=== PATIENT | male | born 1955 | race Caucasian/White ===

== ENCOUNTER 2020-09-28 19:19 | Inpatient (IN) ==
[2020-09-28] MEDS ORDERED: Etomidate 20 mg/10 ml 2 MG/ML 10 ml VIAL IV ONE (19:29)
[2020-09-28] MEDS ORDERED: Succinylcholine 200 mg VIAL 20 mg/ml 10 ml VIAL (200 mg) IV ONE (19:30)
[2020-09-28] MEDS ORDERED: Piperacillin/Tazobac PREMIX(*) 3.375 GM in Premix IV 50 ML IVPB ONE (19:32)
[2020-09-28] MEDS ORDERED: NS 0.9% 1000 ml BAG 1,000 ML IV ONE (19:32)
[2020-09-28] MEDS ORDERED: Propofol 10 mg/ml 100 ML BTL 100 ML IV ONE (20:04)
[2020-09-28] MEDS ORDERED: Premix IV 0 ML ONE (20:04)
[2020-09-28] MEDS ORDERED: ZOSYN 3.375 GM x ONE DOSE over 30 miuntes IV (20:06)
[2020-09-28 20:07] LABS: ALT 11 U/L (7-52); Albumin 1.9 g/dL (3.2-5.2); Alkaline Phosphatase 79 U/L (34-104); BUN/Creatinine Ratio 57.8 (8-20); Blood Urea Nitrogen 52 mg/dL (6-24); CO2 Carbon Dioxide 18 mmol/L (22-32); Creatine Kinase 54 U/L (10-223); EGFR African American 101.8 (>60); EGFR Non-African American 84.2 (>60); Globulin 1.9 g/dL (2-4); Glucose 138 mg/dL (70-100); Magnesium 1.4 mg/dL (1.9-2.7); Total Protein 3.8 g/dL (6.4-8.9)
[2020-09-28 20:08] LABS: Troponin I 0.01 ng/mL (<0.03)
[2020-09-28 20:13] LABS: ABS Lymphocytes 1.1 10^3/ul (1.0-4.8); ABS Monocytes 0.7 10^3/ul (0-0.8); ABS Neutrophils 4.5 10^3/ul (1.5-7.7); Eosinophil % 0.7 %; Hematocrit 41 % (42-52); Hemoglobin 13.4 g/dL (14.0-18.0); Mean Corpuscular HGB Conc 33 g/dL (31-36); Mean Corpuscular Hemoglobin 32 pg (27-31); Mean Corpuscular Volume 97 fL (80-94); Mean Platelet Volume 6.8 fL (7.4-10.4); Nucleated Red Blood Cells % 0.2; Platelet Count 232 10^3/uL (150-450); Red Blood Count 4.18 10^6 /uL (4.18-5.48); Red Cell Distribution Width 13 % (10-15); White Blood Count 6.3 10^3/uL (3.5-10.8)
[2020-09-28 20:16] LABS: Acetaminophen < 15 mcg/mL; Alcohol, S < 10 mg/dL (<10); Salicylate < 2.50 mg/dL (<30)
[2020-09-28 20:20] LABS: INR 1.37 (0.82-1.09)
[2020-09-28 20:30] LABS: TSH Ultra Thyroid Stim Horm 0.62 mcIU/mL (0.34-5.60)
[2020-09-28] MEDS ORDERED: fentaNYL 100 mcg/2 ml 50 MCG/ML VIAL ONE (20:31)
[2020-09-28] MEDS ORDERED: fentaNYL 100 mcg/2 ml 50 MCG/ML VIAL IV SLOW PU ONE ×2 (20:33→22:17)
[2020-09-28 20:44] LABS: Anion Gap 7 mmol/L (2-11); Chloride 125 mmol/L (101-111); Sodium 150 mmol/L (135-145)
[2020-09-28 20:46] LABS: Calcium 5.6 mg/dL (8.6-10.3)
[2020-09-28] MEDS ORDERED: Magnesium Sulfate 2 gm BAG 2 GM/50 ML BAG IVPB ONE (20:47)
[2020-09-28 21:16] LABS: Urine Appearance Cloudy; Urine Bilirubin 1+ (Negative); Urine Blood Negative (Negative); Urine Color Amber; Urine Glucose 1+(50 mg/dL) (Negative); Urine Ketones Trace (Negative); Urine Nitrite Negative (Negative); Urine Protein 2+(100 mg/dL) (Negative); Urine Specific Gravity 1.024 (1.002-1.030); Urine Urobilinogen Positive (Negative)
[2020-09-28 21:21] LABS: Urine Bacteria 1+ (Absent); Urine Red Blood Cell 3+(>10/hpf) (Absent); Urine Squamous Epithelial Cell Present (Absent); Urine White Blood Cell 1+(6-10/hpf) (Absent)
[2020-09-28 21:31] LABS: Urine Benzodiazepine Screen None Detected (None Detect); Urine Cannabinoids Screen None Detected (None Detect); Urine Opiates Screen None Detected (None Detect)
[2020-09-28] MEDS ORDERED: Dextrose 50% Syringe 50 ml 25 GM/50 ML SYRINGE IV PUSH PRN (21:37)
[2020-09-28] MEDS ORDERED: NORMOSOL-R pH 7.4 1000 mL BAG 1,000 ML IV SCH (22:00)
[2020-09-28] MEDS ORDERED: Vancomycin 1,000 MG in NS 0.9% 250 ml 250 ML IVPB ONE (22:00)
[2020-09-28] MEDS ORDERED: Propofol 10 mg/ml 100 ML BTL 100 ML ONE (22:26)
[2020-09-28] MEDS: Propofol 10 mg/ml 100 ML BTL 100 ML IV SCH ×2 (22:50→23:48)
[2020-09-28] MEDS ORDERED: Cefepime 1 GM in Dextrose 1 GM/50 ML BAG IV ONE (23:00)
[2020-09-28] MEDS: NS 0.9% 1000 ml BAG 1,000 ML IV SCH (23:42)
[2020-09-28] MEDS ORDERED: fentaNYL 100 mcg/2 ml 50 MCG/ML VIAL IV SLOW PU PRN (23:43)
[2020-09-29] MEDS: Norepinephrine 16MCG/ML IVPRE 4,000 MCG/250 ML BAG IV SCH ×4 (00:51→14:40)
[2020-09-29] MEDS ORDERED: NS 0.9% 1000 ml BAG 1,000 ML IV SCH (01:00)
[2020-09-29 01:14] LABS: Urine Appearance Cloudy; Urine Bilirubin Negative (Negative); Urine Blood 1+ (Negative); Urine Color Yellow; Urine Glucose Negative (Negative); Urine Ketones Negative (Negative); Urine Nitrite Negative (Negative); Urine Protein 1+(30 mg/dL) (Negative); Urine Specific Gravity 1.017 (1.002-1.030); Urine Urobilinogen Negative (Negative)
[2020-09-29] MEDS ORDERED: Midazolam 2 mg/2 ml VIAL 1 mg/ml 2 ml VIAL (2 mg) ONE ×2 (01:16→10:40)
[2020-09-29] MEDS ORDERED: Midazolam 2 mg/2 ml VIAL 1 mg/ml 2 ml VIAL (2 mg) IV SLOW PU PRN (01:16)
[2020-09-29 01:22] LABS: Urine Bacteria Absent (Absent); Urine Red Blood Cell 3+(>10/hpf) (Absent); Urine Squamous Epithelial Cell Present (Absent); Urine White Blood Cell Trace(0-5/hpf) (Absent); Urine White Blood Cell Casts Present (Absent)
[2020-09-29] MEDS: Midazolam 50 MG VIAL IV DRIP 50 ML IV SCH ×2 (02:09→10:33)
[2020-09-29] MEDS: Pantoprazole VIAL 40 MG VIAL IV SCH (02:17)
[2020-09-29 04:07] LABS: ABS Eosinophils 0.1 10^3/ul (0-0.6); ABS Lymphocytes 1.6 10^3/ul (1.0-4.8); ABS Monocytes 0.9 10^3/ul (0-0.8); ABS Neutrophils 5.2 10^3/ul (1.5-7.7); Eosinophil % 1.1 %; Hematocrit 47 % (42-52); Hemoglobin 14.7 g/dL (14.0-18.0); Lymphocyte % 20.3 %; Mean Corpuscular HGB Conc 32 g/dL (31-36); Mean Corpuscular Hemoglobin 31 pg (27-31); Mean Corpuscular Volume 100 fL (80-94); Nucleated Red Blood Cells % 0.1; Platelet Count 276 10^3/uL (150-450); Red Cell Distribution Width 14 % (10-15); White Blood Count 7.9 10^3/uL (3.5-10.8)
[2020-09-29] MEDS ORDERED: Vancomycin per Pharmacy 1 EA NOTE FOLLOW UP PRN (04:20)
[2020-09-29 04:47] LABS: BUN/Creatinine Ratio 57.8 (8-20); EGFR African American 88.1 (>60); EGFR Non-African American 72.8 (>60); Potassium 4.2 mmol/L (3.5-5.0)
[2020-09-29] MEDS ORDERED: Chlorhexidine MOUTHWASH 0.12% 15 ML UDC ONE (07:44)
[2020-09-29] MEDS ORDERED: TRANEXAMIC ACID 650 MG PO SCH (09:00)
[2020-09-29] MEDS ORDERED: NS 0.45% 1000 ml BAG 1,000 ML IV SCH (09:00)
[2020-09-29] MEDS: Chlorhexidine MOUTHWASH 0.12% 15 ML UDC SWISH SPIT SCH ×4 (10:50→22:12)
[2020-09-29] MEDS: fentaNYL 100 mcg/2 ml 50 MCG/ML VIAL IV SLOW PU PRN (11:10)
[2020-09-29] MEDS ORDERED: fentaNYL 100 mcg/2 ml 50 MCG/ML VIAL ONE (12:13)
[2020-09-29] MEDS ORDERED: Cefepime ADVAN 1 GM in NS 0.9% 50 ML 50 ML IVPB SCH (13:00)
[2020-09-29] MEDS: Cefepime 1 GM in Dextrose 1 GM/50 ML BAG IV SCH (13:11)
[2020-09-29] MEDS ORDERED: Hydrocortisone INJ 250 MG VIAL IV ONE (13:33)
[2020-09-29] MEDS: Vancomycin 1000 MG in NS 0.9% 250 ML IVPB SCH (13:52)
[2020-09-29] MEDS ORDERED: Hydrocortisone INJ 100 MG/2ML 2 ML VIAL IV ONE (14:00)
[2020-09-29 15:19] LABS: BUN/Creatinine Ratio 57.7 (8-20); Calcium 7.8 mg/dL (8.6-10.3); EGFR African American 133.9 (>60); EGFR Non-African American 110.7 (>60); Potassium 3.8 mmol/L (3.5-5.0)
[2020-09-29] MEDS ORDERED: Norepinephrine 16MCG/ML IVPRE 4,000 MCG/250 ML BAG IV SCH (17:38)
[2020-09-29] MEDS: KCL 20 MEQ/100 ML IVPREMIX 20 MEQ/100 ML BAG IV SCH ×2 (18:29→19:43)
[2020-09-29] MEDS: Hydrocortisone INJ 100 MG/2ML 2 ML VIAL IV SCH (21:31)
[2020-09-29] MEDS: Insulin GLARGINE 100 un/ml 10 ml VIAL SUBCUT SCH (21:32)
[2020-09-29 21:53] LABS: BUN/Creatinine Ratio 56.5 (8-20); EGFR African American 156.6 (>60); EGFR Non-African American 129.4 (>60)
[2020-09-29 22:03] LABS: Potassium 5.2 mmol/L (3.5-5.0)
[2020-09-30] MEDS: fentaNYL 100 mcg/2 ml 50 MCG/ML VIAL IV SLOW PU PRN (00:07)
[2020-09-30] MEDS: Cefepime 1 GM in Dextrose 1 GM/50 ML BAG IV SCH ×2 (01:03→12:06)
[2020-09-30] MEDS: Vancomycin 1000 MG in NS 0.9% 250 ML IVPB SCH ×2 (02:20→14:20)
[2020-09-30] MEDS: Pantoprazole VIAL 40 MG VIAL IV SCH (02:27)
[2020-09-30] MEDS: Chlorhexidine MOUTHWASH 0.12% 15 ML UDC SWISH SPIT SCH ×6 (02:27→20:22)
[2020-09-30] MEDS: Hydrocortisone INJ 100 MG/2ML 2 ML VIAL IV SCH ×3 (05:25→20:22)
[2020-09-30 05:33] LABS: ABS Lymphocytes 0.6 10^3/ul (1.0-4.8); ABS Monocytes 0.4 10^3/ul (0-0.8); ABS Neutrophils 4.3 10^3/ul (1.5-7.7); Hematocrit 37 % (42-52); Hemoglobin 12.3 g/dL (14.0-18.0); Lymphocyte % 11.1 %; Mean Corpuscular HGB Conc 34 g/dL (31-36); Mean Corpuscular Hemoglobin 32 pg (27-31); Mean Corpuscular Volume 95 fL (80-94); Mean Platelet Volume 6.7 fL (7.4-10.4); Platelet Count 202 10^3/uL (150-450); Red Blood Count 3.83 10^6 /uL (4.18-5.48); Red Cell Distribution Width 14 % (10-15); White Blood Count 5.3 10^3/uL (3.5-10.8)
[2020-09-30 05:50] LABS: BUN/Creatinine Ratio 61.8 (8-20); Calcium 7.8 mg/dL (8.6-10.3); EGFR African American 179.8 (>60); EGFR Non-African American 148.6 (>60); Potassium 4.5 mmol/L (3.5-5.0)
[2020-09-30] MEDS ORDERED: Dexmedetomidine 1,000 MCG in NS 0.9% 250 ml 240 ML IV SCH (08:00)
[2020-09-30] MEDS: Midazolam 50 MG VIAL IV DRIP 50 ML IV SCH (08:48)
[2020-09-30] MEDS ORDERED: D5W 1000 ml BAG 1,000 ML IV SCH (10:00)
[2020-09-30] MEDS ORDERED: D5NS 0.9% 1000 ml BAG 1,000 ML IV SCH (10:00)
[2020-09-30] MEDS ORDERED: Propofol 10 mg/ml 100 ML BTL 100 ML ONE (11:13)
[2020-09-30] MEDS ORDERED: Propofol 10 mg/ml 100 ML BTL 100 ML IV SCH (12:00)
[2020-09-30] MEDS: Propofol* 20 ML VIAL - FOR IV LINE PRIMING ONLY SCH ×2 (12:05→22:29)
[2020-09-30] MEDS ORDERED: Vancomycin Trough Check NOTE FOLLOW UP ONE (13:30)
[2020-09-30] MEDS: Insulin GLARGINE 100 un/ml 10 ml VIAL SUBCUT SCH (20:22)
[2020-09-30 20:56] LABS: Albumin 2.3 g/dL (3.2-5.2); Calcium 7.6 mg/dL (8.6-10.3); EGFR African American 200.7 (>60); EGFR Non-African American 165.9 (>60); Globulin 2.3 g/dL (2-4); Potassium 4.3 mmol/L (3.5-5.0); Total Bilirubin 0.3 mg/dL (0.2-1.0); Total Protein 4.6 g/dL (6.4-8.9)
[2020-09-30] MEDS ORDERED: NS 0.9% 250 ml 250 ML ONE (21:33)
[2020-09-30] MEDS ORDERED: Potassium Phosphate IV 15 MMOLE in NS 0.9% 250 ml 250 ML IVPB ONE (22:00)
[2020-10-01] MEDS: Chlorhexidine MOUTHWASH 0.12% 15 ML UDC SWISH SPIT SCH ×6 (00:50→20:00)
[2020-10-01] MEDS: Cefepime 1 GM in Dextrose 1 GM/50 ML BAG IV SCH ×2 (01:50→14:15)
[2020-10-01] MEDS: Pantoprazole VIAL 40 MG VIAL IV SCH (01:51)
[2020-10-01] MEDS: Vancomycin 1000 MG in NS 0.9% 250 ML IVPB SCH ×2 (03:17→14:16)
[2020-10-01] MEDS: fentaNYL 100 mcg/2 ml 50 MCG/ML VIAL IV SLOW PU PRN (03:27)
[2020-10-01 04:19] LABS: ABS Lymphocytes 0.4 10^3/ul (1.0-4.8); ABS Monocytes 0.3 10^3/ul (0-0.8); ABS Neutrophils 2.4 10^3/ul (1.5-7.7); Eosinophil % 0.1 %; Hematocrit 35 % (42-52); Hemoglobin 11.7 g/dL (14.0-18.0); Lymphocyte % 13.7 %; Mean Corpuscular HGB Conc 34 g/dL (31-36); Mean Corpuscular Hemoglobin 32 pg (27-31); Mean Corpuscular Volume 96 fL (80-94); Mean Platelet Volume 7.2 fL (7.4-10.4); Nucleated Red Blood Cells % 0.1; Platelet Count 180 10^3/uL (150-450); Red Blood Count 3.66 10^6 /uL (4.18-5.48); Red Cell Distribution Width 13 % (10-15); White Blood Count 3.1 10^3/uL (3.5-10.8)
[2020-10-01 04:36] LABS: Albumin 2.3 g/dL (3.2-5.2); BUN/Creatinine Ratio 68.1 (8-20); Calcium 7.6 mg/dL (8.6-10.3); EGFR African American 215.5 (>60); EGFR Non-African American 178.1 (>60); Magnesium 1.9 mg/dL (1.9-2.7); Phosphorus 2.9 mg/dL (2.5-5.0); Potassium 4.5 mmol/L (3.5-5.0); Total Protein 4.6 g/dL (6.4-8.9)
[2020-10-01 04:37] LABS: Globulin 2.3 g/dL (2-4); Total Bilirubin 0.3 mg/dL (0.2-1.0)
[2020-10-01] MEDS ORDERED: Magnesium Sulfate IV 1GM/100ML 1 GM/100 ML BAG IV ONE (05:03)
[2020-10-01] MEDS: Hydrocortisone INJ 100 MG/2ML 2 ML VIAL IV SCH ×2 (05:21→14:46)
[2020-10-01] MEDS ORDERED: Heparin 5000 UNITS/ML 1 mL VIAL SUBCUT SCH (11:00)
[2020-10-01] MEDS: Propofol* 20 ML VIAL - FOR IV LINE PRIMING ONLY SCH ×2 (12:34→22:28)
[2020-10-01] MEDS ORDERED: LORazepam 2 mg VIAL 1 ml IV PUSH ONE (13:17)
[2020-10-01] MEDS ORDERED: Lorazepam PYXIS KEY PRN (13:17)
[2020-10-01] MEDS ORDERED: Lorazepam PYXIS KEY ONE (13:19)
[2020-10-01] MEDS ORDERED: LORazepam 2 mg VIAL 1 ml ONE (13:20)
[2020-10-01] MEDS ORDERED: Haloperidol 5 mg/ml SDV IV/IM 5 MG/ML AMP ONE (13:20)
[2020-10-01] MEDS: Haloperidol 5 mg/ml SDV IV/IM 5 MG/ML AMP IV SLOW PU PRN ×2 (13:31→22:15)
[2020-10-01] MEDS: Insulin GLARGINE 100 un/ml 10 ml VIAL SUBCUT SCH (20:27)
[2020-10-01] MEDS: Heparin 5000 UNITS/ML 1 mL VIAL SUBCUT SCH (21:10)
[2020-10-02] MEDS: Cefepime 1 GM in Dextrose 1 GM/50 ML BAG IV SCH (00:17)
[2020-10-02] MEDS: fentaNYL 100 mcg/2 ml 50 MCG/ML VIAL IV SLOW PU PRN (00:24)
[2020-10-02] MEDS: Chlorhexidine MOUTHWASH 0.12% 15 ML UDC SWISH SPIT SCH ×3 (01:04→08:06)
[2020-10-02] MEDS ORDERED: Lorazepam PYXIS KEY PRN (01:25)
[2020-10-02] MEDS ORDERED: LORazepam 2 mg VIAL 1 ml IV PUSH ONE (01:25)
[2020-10-02] MEDS: Pantoprazole VIAL 40 MG VIAL IV SCH (01:32)
[2020-10-02 03:36] LABS: ABS Lymphocytes 0.8 10^3/ul (1.0-4.8); ABS Monocytes 0.6 10^3/ul (0-0.8); Eosinophil % 0.1 %; Hematocrit 46 % (42-52); Hemoglobin 15.5 g/dL (14.0-18.0); Lymphocyte % 17.8 %; Mean Corpuscular HGB Conc 34 g/dL (31-36); Mean Corpuscular Hemoglobin 32 pg (27-31); Mean Corpuscular Volume 96 fL (80-94); Mean Platelet Volume 6.8 fL (7.4-10.4); Nucleated Red Blood Cells % 0.1; Platelet Count 201 10^3/uL (150-450); Red Blood Count 4.83 10^6 /uL (4.18-5.48); Red Cell Distribution Width 13 % (10-15); White Blood Count 4.4 10^3/uL (3.5-10.8)
[2020-10-02] MEDS: Vancomycin 1000 MG in NS 0.9% 250 ML IVPB SCH (03:45)
[2020-10-02 03:58] LABS: BUN/Creatinine Ratio 46.2 (8-20); Calcium 8.1 mg/dL (8.6-10.3); EGFR African American 191.8 (>60); EGFR Non-African American 158.5 (>60); Potassium 3.5 mmol/L (3.5-5.0)
[2020-10-02] MEDS: Heparin 5000 UNITS/ML 1 mL VIAL SUBCUT SCH ×2 (08:07→20:48)
[2020-10-02 08:10] LABS: Magnesium 1.9 mg/dL (1.9-2.7)
[2020-10-02] MEDS ORDERED: TRANEXAMIC ACID 650 MG PO SCH (09:00)
[2020-10-02] MEDS: D5LR 1000 ml BAG 1,000 ML IV SCH (10:30)
[2020-10-02] MEDS: Thiamine 100 MG/ML 2 ml VIAL 500 MG in NS 0.9% 250 ml 250 ML IV SCH ×2 (10:46→18:25)
[2020-10-02 14:00] LABS: Glucose Confirmatory 187 mg/dL (70-100)
[2020-10-02 15:03] LABS: Sodium 155 mmol/L (135-145)
[2020-10-02 15:07] LABS: Urine Appearance Cloudy; Urine Bacteria Absent (Absent); Urine Bilirubin Negative (Negative); Urine Blood 3+ (Negative); Urine Color Straw; Urine Glucose 1+(50 mg/dL) (Negative); Urine Ketones Negative (Negative); Urine Nitrite Negative (Negative); Urine Protein 1+(30 mg/dL) (Negative); Urine Red Blood Cell 3+(>10/hpf) (Absent); Urine Specific Gravity 1.005 (1.002-1.030); Urine Urobilinogen Negative (Negative); Urine White Blood Cell 1+(6-10/hpf) (Absent)
[2020-10-02] MEDS ORDERED: Desmopressin Acetate 4 MCG/ML 1 ML SDV IV ONE ×2 (15:30→21:00)
[2020-10-02] MEDS ORDERED: Potassium Phosphate IV 15 MMOLE in NS 0.9% 250 ml 250 ML IVPB ONE (15:30)
[2020-10-02 18:15] LABS: Glucose 249 mg/dL (70-100)
[2020-10-02 18:20] LABS: Sodium 153 mmol/L (135-145)
[2020-10-02 20:29] LABS: Urine Appearance Clear; Urine Bilirubin Negative (Negative); Urine Blood 3+ (Negative); Urine Color Straw; Urine Glucose 2+(150 mg/dL) (Negative); Urine Ketones Negative (Negative); Urine Nitrite Negative (Negative); Urine Protein 1+(30 mg/dL) (Negative); Urine Specific Gravity 1.008 (1.002-1.030); Urine Urobilinogen Negative (Negative)
[2020-10-02] MEDS: Insulin GLARGINE 100 un/ml 10 ml VIAL SUBCUT SCH (20:48)
[2020-10-02 20:51] LABS: Urine Bacteria Absent (Absent); Urine Red Blood Cell 3+(>10/hpf) (Absent); Urine White Blood Cell Absent (Absent)
[2020-10-03] MEDS: D5LR 1000 ml BAG 1,000 ML IV SCH ×3 (01:58→16:37)
[2020-10-03] MEDS: Pantoprazole VIAL 40 MG VIAL IV SCH (02:30)
[2020-10-03] MEDS: Thiamine 100 MG/ML 2 ml VIAL 500 MG in NS 0.9% 250 ml 250 ML IV SCH ×3 (02:30→18:13)
[2020-10-03 05:21] LABS: Calcium 8.1 mg/dL (8.6-10.3); EGFR Non-African American 182.6 (>60); Magnesium 1.5 mg/dL (1.9-2.7); Phosphorus 2.7 mg/dL (2.5-5.0); Potassium 3.2 mmol/L (3.5-5.0)
[2020-10-03] MEDS: Heparin 5000 UNITS/ML 1 mL VIAL SUBCUT SCH ×2 (08:33→21:34)
[2020-10-03] MEDS: KCL 20 MEQ/100 ML IVPREMIX 20 MEQ/100 ML BAG IV SCH ×3 (10:42→15:27)
[2020-10-03] MEDS ORDERED: DESMOPRESSIN ACETATE IVPB SCH (11:00)
[2020-10-03] MEDS ORDERED: NS 0.9% IVPB SCH (11:00)
[2020-10-03] MEDS ORDERED: Magnesium Sulf 4 GM/100 ML IV 4,000 MG/100 ML BAG IVPB ONE (11:00)
[2020-10-03] MEDS: NS 0.9% IV SCH ×3 (11:09→21:34)
[2020-10-03] MEDS: DESMOPRESSIN ACETATE IV SCH ×3 (11:09→21:34)
[2020-10-03] MEDS ORDERED: Lactated Ringers 1000 ml BAG 1,000 ML IV ONE (12:12)
[2020-10-03] MEDS ORDERED: Vancomycin Trough Check NOTE FOLLOW UP ONE (13:30)
[2020-10-03] MEDS ORDERED: Perflutren Lipid Microsphere 3 ML VIAL ONE (14:31)
[2020-10-03] MEDS: Insulin GLARGINE 100 un/ml 10 ml VIAL SUBCUT SCH (21:33)
[2020-10-04] MEDS: Pantoprazole VIAL 40 MG VIAL IV SCH (02:06)
[2020-10-04] MEDS: Thiamine 100 MG/ML 2 ml VIAL 500 MG in NS 0.9% 250 ml 250 ML IV SCH (02:14)
[2020-10-04 03:19] LABS: Calcium 7.6 mg/dL (8.6-10.3); EGFR African American 245.4 (>60); EGFR Non-African American 202.8 (>60); Magnesium 1.8 mg/dL (1.9-2.7); Phosphorus 1.8 mg/dL (2.5-5.0); Potassium 3.3 mmol/L (3.5-5.0)
[2020-10-04] MEDS ORDERED: Magnesium Sulfate 2 gm BAG 2 GM/50 ML BAG IVPB ONE (03:29)
[2020-10-04] MEDS ORDERED: SODIUM PHOSPHATE IVPB ONE (03:30)
[2020-10-04] MEDS ORDERED: NS IVPB ONE (03:30)
[2020-10-04] MEDS ORDERED: Potassium Phosphate IV 15 MMOLE in NS 0.9% 250 ml 250 ML IVPB ONE (03:31)
[2020-10-04] MEDS ORDERED: Magnesium Sulfate 2 gm BAG 2 GM/50 ML BAG ONE (03:35)
[2020-10-04] MEDS ORDERED: KCL 20 MEQ/100 ML IVPREMIX 20 MEQ/100 ML BAG ONE (03:36)
[2020-10-04] MEDS: KCL 20 MEQ/100 ML IVPREMIX 20 MEQ/100 ML BAG IV SCH ×2 (03:38→09:07)
[2020-10-04] MEDS: D5LR 1000 ml BAG 1,000 ML IV SCH ×2 (03:38→10:20)
[2020-10-04] MEDS: Heparin 5000 UNITS/ML 1 mL VIAL SUBCUT SCH ×2 (09:25→20:21)
[2020-10-04] MEDS: DESMOPRESSIN ACETATE IV SCH (11:32)
[2020-10-04] MEDS: NS 0.9% IV SCH (11:32)
[2020-10-04] MEDS: Levothyroxine 100 MCG/5 ML VIAL IV SCH (11:44)
[2020-10-04] MEDS: Thiamine 100 MG/ML 2 ml VIAL 250 MG in NS 0.9% 100 ml BAG 100 ML IV SCH (16:47)
[2020-10-04] MEDS: Insulin GLARGINE 100 un/ml 10 ml VIAL SUBCUT SCH (20:21)
[2020-10-05] MEDS: Pantoprazole VIAL 40 MG VIAL IV SCH (02:13)
[2020-10-05] MEDS: D5LR 1000 ml BAG 1,000 ML IV SCH ×2 (02:13→23:58)
[2020-10-05] MEDS: Levothyroxine 100 MCG/5 ML VIAL IV SCH (05:00)
[2020-10-05 08:32] LABS: Calcium 7.8 mg/dL (8.6-10.3); EGFR African American 293.2 (>60); EGFR Non-African American 242.3 (>60); Magnesium 1.6 mg/dL (1.9-2.7); Phosphorus 2.3 mg/dL (2.5-5.0); Potassium 3.5 mmol/L (3.5-5.0)
[2020-10-05] MEDS: Heparin 5000 UNITS/ML 1 mL VIAL SUBCUT SCH ×2 (09:49→21:45)
[2020-10-05] MEDS: Thiamine 100 MG/ML 2 ml VIAL 250 MG in NS 0.9% 100 ml BAG 100 ML IV SCH (14:49)
[2020-10-05] MEDS: Insulin GLARGINE 100 un/ml 10 ml VIAL SUBCUT SCH (21:45)
[2020-10-06] MEDS: Pantoprazole VIAL 40 MG VIAL IV SCH (04:39)
[2020-10-06 06:17] LABS: Calcium 7.6 mg/dL (8.6-10.3); Potassium 3.7 mmol/L (3.5-5.0)
[2020-10-06 06:22] LABS: EGFR African American 275.5 (>60); EGFR Non-African American 227.7 (>60)
[2020-10-06] MEDS: Levothyroxine 100 MCG/5 ML VIAL IV SCH (06:56)
[2020-10-06] MEDS: Heparin 5000 UNITS/ML 1 mL VIAL SUBCUT SCH ×2 (08:32→23:35)
[2020-10-06] MEDS ORDERED: Magnesium Hydroxide LIQ 30 ML UDC PO ONE (10:23)
[2020-10-06] MEDS ORDERED: Polyethylene Glycol 3350 17 GM PACKET PO ONE (10:25)
[2020-10-06] MEDS: Thiamine 100 MG/ML 2 ml VIAL 250 MG in NS 0.9% 100 ml BAG 100 ML IV SCH (14:38)
[2020-10-06] MEDS: Insulin GLARGINE 100 un/ml 10 ml VIAL SUBCUT SCH (20:22)
[2020-10-06] MEDS: Haloperidol 5 mg/ml SDV IV/IM 5 MG/ML AMP IV SLOW PU PRN (20:23)
[2020-10-06] MEDS: Magnesium Hydroxide LIQ 30 ML UDC PO SCH (21:30)
[2020-10-07] MEDS: Pantoprazole VIAL 40 MG VIAL IV SCH (02:26)
[2020-10-07] MEDS: D5LR 1000 ml BAG 1,000 ML IV SCH (02:26)
[2020-10-07] MEDS: Levothyroxine 100 MCG/5 ML VIAL IV SCH (05:31)
[2020-10-07 05:50] LABS: ABS Eosinophils 0.1 10^3/ul (0-0.6); ABS Lymphocytes 0.6 10^3/ul (1.0-4.8); ABS Monocytes 0.4 10^3/ul (0-0.8); ABS Neutrophils 2.2 10^3/ul (1.5-7.7); Eosinophil % 2.2 %; Hematocrit 34 % (42-52); Hemoglobin 11.7 g/dL (14.0-18.0); Lymphocyte % 17.4 %; Mean Corpuscular HGB Conc 34 g/dL (31-36); Mean Corpuscular Hemoglobin 32 pg (27-31); Mean Corpuscular Volume 92 fL (80-94); Mean Platelet Volume 6.5 fL (7.4-10.4); Platelet Count 128 10^3/uL (150-450); Red Cell Distribution Width 13 % (10-15); White Blood Count 3.3 10^3/uL (3.5-10.8)
[2020-10-07 06:09] LABS: Albumin 2.4 g/dL (3.2-5.2); Albumin/Globulin Ratio 0.9 (1-3); EGFR African American 313.2 (>60); EGFR Non-African American 258.8 (>60); Globulin 2.6 g/dL (2-4); Magnesium 1.6 mg/dL (1.9-2.7); Phosphorus 2.3 mg/dL (2.5-5.0); Potassium 3.4 mmol/L (3.5-5.0); Total Bilirubin 0.6 mg/dL (0.2-1.0)
[2020-10-07] MEDS: Heparin 5000 UNITS/ML 1 mL VIAL SUBCUT SCH ×2 (08:43→20:14)
[2020-10-07] MEDS: Magnesium Hydroxide LIQ 30 ML UDC PO SCH ×2 (08:43→20:13)
[2020-10-07] MEDS: Thiamine 100 MG/ML 2 ml VIAL 250 MG in NS 0.9% 100 ml BAG 100 ML IV SCH (14:34)
[2020-10-07] MEDS ORDERED: Potassium Chlor 20 meq TAB.ER PO ONE (17:06)
[2020-10-07] MEDS ORDERED: Magnesium Sulf 4 GM/100 ML IV 4,000 MG/100 ML BAG IVPB ONE (17:08)
[2020-10-07] MEDS: Potassium Acid Phos 500 mg TAB PO SCH ×2 (17:41→23:05)
[2020-10-07] MEDS: Insulin GLARGINE 100 un/ml 10 ml VIAL SUBCUT SCH (20:13)
[2020-10-07] MEDS: Haloperidol 5 mg/ml SDV IV/IM 5 MG/ML AMP IV SLOW PU PRN (20:14)
[2020-10-08] MEDS: Pantoprazole VIAL 40 MG VIAL IV SCH (03:58)
[2020-10-08] MEDS: D5LR 1000 ml BAG 1,000 ML IV SCH (04:01)
[2020-10-08 05:45] LABS: Calcium 8.3 mg/dL (8.6-10.3); EGFR African American 238.8 (>60); EGFR Non-African American 197.4 (>60); Magnesium 2.2 mg/dL (1.9-2.7); Phosphorus 2.8 mg/dL (2.5-5.0); Potassium 4.2 mmol/L (3.5-5.0)
[2020-10-08] MEDS: Potassium Acid Phos 500 mg TAB PO SCH (05:57)
[2020-10-08] MEDS: Levothyroxine 100 MCG/5 ML VIAL IV SCH (05:57)
[2020-10-08] MEDS: Heparin 5000 UNITS/ML 1 mL VIAL SUBCUT SCH ×2 (09:00→20:50)
[2020-10-08] MEDS: Magnesium Hydroxide LIQ 30 ML UDC PO SCH ×2 (09:00→20:50)
[2020-10-08] MEDS: Thiamine 100 MG/ML 2 ml VIAL 250 MG in NS 0.9% 100 ml BAG 100 ML IV SCH (15:51)
[2020-10-08] MEDS: Insulin GLARGINE 100 un/ml 10 ml VIAL SUBCUT SCH (20:50)
[2020-10-09] MEDS: Pantoprazole VIAL 40 MG VIAL IV SCH (00:58)
[2020-10-09 06:02] LABS: Calcium 8.4 mg/dL (8.6-10.3); EGFR African American 267.3 (>60); EGFR Non-African American 220.9 (>60); Potassium 3.6 mmol/L (3.5-5.0)
[2020-10-09 09:21] LABS: ABS Lymphocytes 0.5 10^3/ul (1.0-4.8); ABS Monocytes 0.4 10^3/ul (0-0.8); ABS Neutrophils 5.8 10^3/ul (1.5-7.7); Eosinophil % 0.3 %; Hematocrit 41 % (42-52); Hemoglobin 13.7 g/dL (14.0-18.0); Lymphocyte % 7.6 %; Mean Corpuscular HGB Conc 34 g/dL (31-36); Mean Corpuscular Hemoglobin 32 pg (27-31); Mean Corpuscular Volume 94 fL (80-94); Mean Platelet Volume 6.3 fL (7.4-10.4); Platelet Count 201 10^3/uL (150-450); Red Blood Count 4.33 10^6 /uL (4.18-5.48); Red Cell Distribution Width 13 % (10-15); White Blood Count 6.8 10^3/uL (3.5-10.8)
[2020-10-09] MEDS: Heparin 5000 UNITS/ML 1 mL VIAL SUBCUT SCH ×2 (09:43→21:34)
[2020-10-09] MEDS: Magnesium Hydroxide LIQ 30 ML UDC PO SCH ×2 (10:12→19:51)
[2020-10-09 10:43] LABS: Urine Appearance Cloudy; Urine Bilirubin Negative (Negative); Urine Blood 2+ (Negative); Urine Color Yellow; Urine Glucose Negative (Negative); Urine Ketones Trace (Negative); Urine Nitrite Negative (Negative); Urine Protein 2+(100 mg/dL) (Negative); Urine Specific Gravity 1.013 (1.002-1.030); Urine Urobilinogen Negative (Negative)
[2020-10-09 10:46] LABS: Urine Bacteria Absent (Absent); Urine Red Blood Cell 3+(>10/hpf) (Absent); Urine White Blood Cell Trace(0-5/hpf) (Absent)
[2020-10-09] MEDS ORDERED: NS 0.9% IV ONE (11:15)
[2020-10-09] MEDS ORDERED: NS 0.9% 1000 ml BAG 1,000 ML IV SCH (11:30)
[2020-10-09] MEDS ORDERED: cefTRIAXone 1 gm/50 mL NS BAG 1 GM/50 ML BAG IVPB SCH (12:00)
[2020-10-09] MEDS: metroNIDAZOLE IV 500 MG/100ML 500 MG/100 ML BAG IVPB SCH ×2 (14:22→20:00)
[2020-10-09] MEDS ORDERED: Furosemide 40 mg/4 ml IV VIAL IV SLOW PU ONE (15:06)
[2020-10-09] MEDS ORDERED: Furosemide 40 mg/4 ml IV VIAL ONE (15:07)
[2020-10-09] MEDS ORDERED: Lorazepam PYXIS KEY PRN (18:29)
[2020-10-09] MEDS: Insulin GLARGINE 100 un/ml 10 ml VIAL SUBCUT SCH (19:50)
[2020-10-09] MEDS: LORazepam 2 mg VIAL 1 ml IV PUSH PRN (23:59)
[2020-10-10] MEDS: Pantoprazole VIAL 40 MG VIAL IV SCH (01:27)
[2020-10-10] MEDS: metroNIDAZOLE IV 500 MG/100ML 500 MG/100 ML BAG IVPB SCH ×3 (04:15→20:33)
[2020-10-10 04:32] LABS: ABS Lymphocytes 0.6 10^3/ul (1.0-4.8); ABS Monocytes 0.6 10^3/ul (0-0.8); ABS Neutrophils 5.4 10^3/ul (1.5-7.7); Eosinophil % 0.2 %; Hematocrit 33 % (42-52); Hemoglobin 11.4 g/dL (14.0-18.0); Lymphocyte % 9.2 %; Mean Corpuscular HGB Conc 35 g/dL (31-36); Mean Corpuscular Hemoglobin 33 pg (27-31); Mean Corpuscular Volume 94 fL (80-94); Mean Platelet Volume 6.2 fL (7.4-10.4); Platelet Count 175 10^3/uL (150-450); Red Cell Distribution Width 13 % (10-15); White Blood Count 6.6 10^3/uL (3.5-10.8)
[2020-10-10 04:52] LABS: Albumin 2.4 g/dL (3.2-5.2); Albumin/Globulin Ratio 0.9 (1-3); Calcium 8.2 mg/dL (8.6-10.3); EGFR African American 259.6 (>60); EGFR Non-African American 214.6 (>60); Globulin 2.8 g/dL (2-4); Potassium 3.5 mmol/L (3.5-5.0); Total Bilirubin 0.7 mg/dL (0.2-1.0); Total Protein 5.2 g/dL (6.4-8.9)
[2020-10-10] MEDS: KCL 20 MEQ/100 ML IVPREMIX 20 MEQ/100 ML BAG IV SCH ×2 (05:37→08:14)
[2020-10-10] MEDS: LORazepam 2 mg VIAL 1 ml IV PUSH PRN (06:14)
[2020-10-10 07:38] LABS: Magnesium 1.6 mg/dL (1.9-2.7)
[2020-10-10 08:11] LABS: Phosphorus 2.5 mg/dL (2.5-5.0)
[2020-10-10] MEDS ORDERED: Magnesium Sulf 4 GM/100 ML IV 4,000 MG/100 ML BAG IVPB ONE (09:00)
[2020-10-10] MEDS ORDERED: cefTRIAXone 1 gm/50 mL NS BAG 1 GM/50 ML BAG IVPB SCH (09:00)
[2020-10-10] MEDS: Heparin 5000 UNITS/ML 1 mL VIAL SUBCUT SCH ×2 (09:03→20:33)
[2020-10-10] MEDS: Magnesium Hydroxide LIQ 30 ML UDC PO SCH ×2 (09:03→20:33)
[2020-10-10] MEDS ORDERED: Furosemide 40 mg/4 ml IV VIAL IV SLOW PU ONE (09:48)
[2020-10-10] MEDS ORDERED: Cefepime ADVAN 1 GM in NS 0.9% 50 ML 50 ML IVPB SCH (15:00)
[2020-10-10] MEDS: Cefepime 1 GM in Dextrose 1 GM/50 ML BAG IV SCH (15:45)
[2020-10-10] MEDS ORDERED: Lactated Ringers 500 ml BAG 500 ML IV ONE (16:03)
[2020-10-10] MEDS: Insulin GLARGINE 100 un/ml 10 ml VIAL SUBCUT SCH (20:33)
[2020-10-11] MEDS: Pantoprazole VIAL 40 MG VIAL IV SCH (02:55)
[2020-10-11] MEDS: Cefepime 1 GM in Dextrose 1 GM/50 ML BAG IV SCH ×2 (02:55→14:59)
[2020-10-11 05:11] LABS: ABS Lymphocytes 0.6 10^3/ul (1.0-4.8); ABS Monocytes 0.5 10^3/ul (0-0.8); ABS Neutrophils 4.7 10^3/ul (1.5-7.7); Eosinophil % 0.7 %; Hematocrit 32 % (42-52); Hemoglobin 10.8 g/dL (14.0-18.0); Lymphocyte % 10.5 %; Mean Corpuscular HGB Conc 34 g/dL (31-36); Mean Corpuscular Hemoglobin 32 pg (27-31); Mean Corpuscular Volume 93 fL (80-94); Mean Platelet Volume 6.6 fL (7.4-10.4); Platelet Count 217 10^3/uL (150-450); Red Blood Count 3.39 10^6 /uL (4.18-5.48); Red Cell Distribution Width 13 % (10-15); White Blood Count 5.9 10^3/uL (3.5-10.8)
[2020-10-11 05:28] LABS: Calcium 8.1 mg/dL (8.6-10.3); EGFR African American 245.4 (>60); EGFR Non-African American 202.8 (>60); Magnesium 2.2 mg/dL (1.9-2.7); Potassium 3.5 mmol/L (3.5-5.0)
[2020-10-11] MEDS ORDERED: Potassium Phosphate IV 15 MMOLE in NS 0.9% 250 ml 250 ML IVPB ONE (05:30)
[2020-10-11] MEDS: metroNIDAZOLE IV 500 MG/100ML 500 MG/100 ML BAG IVPB SCH ×3 (05:34→20:50)
[2020-10-11] MEDS: Heparin 5000 UNITS/ML 1 mL VIAL SUBCUT SCH ×2 (08:34→20:51)
[2020-10-11] MEDS ORDERED: Magnesium Hydroxide LIQ 30 ML UDC PO SCH (09:00)
[2020-10-11] MEDS ORDERED: Docusate LIQ 100 MG/10 ML UDC PO SCH (09:00)
[2020-10-11] MEDS ORDERED: Lactated Ringers 1000 ml BAG 500 ML IV SCH (13:00)
[2020-10-11] MEDS: Insulin GLARGINE 100 un/ml 10 ml VIAL SUBCUT SCH (20:52)
[2020-10-11] MEDS: Docusate LIQ 100 MG/10 ML UDC PO SCH (20:52)
[2020-10-12] MEDS: Pantoprazole VIAL 40 MG VIAL IV SCH (02:04)
[2020-10-12] MEDS: Cefepime 1 GM in Dextrose 1 GM/50 ML BAG IV SCH ×2 (03:49→16:58)
[2020-10-12 04:56] LABS: ABS Eosinophils 0.1 10^3/ul (0-0.6); ABS Lymphocytes 0.5 10^3/ul (1.0-4.8); ABS Monocytes 0.5 10^3/ul (0-0.8); ABS Neutrophils 4.6 10^3/ul (1.5-7.7); Eosinophil % 1.6 %; Hematocrit 34 % (42-52); Hemoglobin 11.6 g/dL (14.0-18.0); Lymphocyte % 9.2 %; Mean Corpuscular HGB Conc 35 g/dL (31-36); Mean Corpuscular Hemoglobin 32 pg (27-31); Mean Corpuscular Volume 93 fL (80-94); Mean Platelet Volume 6.2 fL (7.4-10.4); Platelet Count 258 10^3/uL (150-450); Red Blood Count 3.63 10^6 /uL (4.18-5.48); Red Cell Distribution Width 13 % (10-15); White Blood Count 5.7 10^3/uL (3.5-10.8)
[2020-10-12] MEDS: metroNIDAZOLE IV 500 MG/100ML 500 MG/100 ML BAG IVPB SCH ×3 (04:58→21:08)
[2020-10-12 05:11] LABS: EGFR African American 324.2 (>60); EGFR Non-African American 267.9 (>60); Potassium 3.8 mmol/L (3.5-5.0)
[2020-10-12 07:37] LABS: Magnesium 1.8 mg/dL (1.9-2.7); Phosphorus 2.8 mg/dL (2.5-5.0)
[2020-10-12] MEDS ORDERED: Magnesium Sulfate 2 gm BAG 2 GM/50 ML BAG IVPB ONE (07:48)
[2020-10-12] MEDS: Heparin 5000 UNITS/ML 1 mL VIAL SUBCUT SCH ×2 (08:36→21:08)
[2020-10-12] MEDS: Multivitamins ADULT w/MIN LIQ 15 ML UDC PO SCH (08:36)
[2020-10-12] MEDS: Acetylcysteine 600mgCAP(RENAL) PO SCH ×2 (08:36→21:08)
[2020-10-12] MEDS: Docusate LIQ 100 MG/10 ML UDC PO SCH ×2 (08:36→21:08)
[2020-10-12] MEDS: fentaNYL 250 mcg/5 ml 50 MCG/ML 5 ml VIAL (250 MCG) ONE ×4 (12:50→13:51)
[2020-10-12] MEDS: Midazolam 5 mg/5 ml VIAL 1 mg/ml 5 ml VIAL (5 mg) ONE ×4 (12:50→13:12)
[2020-10-12] MEDS ORDERED: Phenylephrine IV 10 MG/ML 1 ml VIAL ONE (13:21)
[2020-10-12] MEDS ORDERED: Norepinephrine 16MCG/ML IVPRE 4,000 MCG/250 ML BAG IV ONE (13:26)
[2020-10-12] MEDS ORDERED: NS 0.9% 500 ml BAG 500 ML IV ONE (14:18)
[2020-10-12] MEDS ORDERED: Norepinephrine 16MCG/ML IVPRE 4,000 MCG/250 ML BAG IV SCH (15:00)
[2020-10-12] MEDS ORDERED: Lactated Ringers 500 ml BAG 500 ML IV ONE (17:32)
[2020-10-12] MEDS ORDERED: Lorazepam PYXIS KEY PRN (17:46)
[2020-10-12] MEDS ORDERED: LORazepam 2 mg VIAL 1 ml IV PUSH PRN (17:46)
[2020-10-12] MEDS ORDERED: LORazepam 2 mg VIAL 1 ml ONE (17:47)
[2020-10-12] MEDS ORDERED: Lorazepam PYXIS KEY ONE (17:47)
[2020-10-12] MEDS: fentaNYL 100 mcg/2 ml 50 MCG/ML VIAL IV SLOW PU PRN ×2 (19:08→21:04)
[2020-10-12] MEDS ORDERED: Hydrocortisone INJ 100 MG VIAL IV ONE (20:30)
[2020-10-12] MEDS ORDERED: Hydrocortisone INJ 100 MG/2ML 2 ML VIAL IV ONE (20:30)
[2020-10-12] MEDS: Insulin GLARGINE 100 un/ml 10 ml VIAL SUBCUT SCH (21:09)
[2020-10-13] MEDS ORDERED: Chlorhexidine MOUTHWASH 0.12% 15 ML UDC SCH
[2020-10-13] MEDS: Pantoprazole VIAL 40 MG VIAL IV SCH (01:18)
[2020-10-13] MEDS: Cefepime 1 GM in Dextrose 1 GM/50 ML BAG IV SCH (02:36)
[2020-10-13] MEDS: Chlorhexidine MOUTHWASH 0.12% 15 ML UDC SCH ×6 (03:57→23:44)
[2020-10-13] MEDS: metroNIDAZOLE IV 500 MG/100ML 500 MG/100 ML BAG IVPB SCH (03:57)
[2020-10-13 05:08] LABS: ABS Lymphocytes 0.4 10^3/ul (1.0-4.8); ABS Monocytes 0.1 10^3/ul (0-0.8); ABS Neutrophils 2.8 10^3/ul (1.5-7.7); Eosinophil % 0.2 %; Hematocrit 30 % (42-52); Lymphocyte % 13.1 %; Mean Corpuscular HGB Conc 34 g/dL (31-36); Mean Corpuscular Hemoglobin 32 pg (27-31); Mean Corpuscular Volume 94 fL (80-94); Mean Platelet Volume 6.5 fL (7.4-10.4); Nucleated Red Blood Cells % 0.2; Platelet Count 248 10^3/uL (150-450); Red Blood Count 3.13 10^6 /uL (4.18-5.48); Red Cell Distribution Width 14 % (10-15); White Blood Count 3.4 10^3/uL (3.5-10.8)
[2020-10-13 05:25] LABS: ALT 11 U/L (7-52); Albumin 2.3 g/dL (3.2-5.2); Albumin/Globulin Ratio 0.9 (1-3); Alkaline Phosphatase 170 U/L (34-104); Blood Urea Nitrogen 13 mg/dL (6-24); CO2 Carbon Dioxide 22 mmol/L (22-32); Calcium 7.4 mg/dL (8.6-10.3); Chloride 108 mmol/L (101-111); EGFR African American 361.9 (>60); EGFR Non-African American 299.1 (>60); Globulin 2.5 g/dL (2-4); Glucose 178 mg/dL (70-100); Phosphorus 2.7 mg/dL (2.5-5.0); Sodium 138 mmol/L (135-145); Total Protein 4.8 g/dL (6.4-8.9)
[2020-10-13 05:57] LABS: AST 22 U/L (13-39); Anion Gap 8 mmol/L (2-11)
[2020-10-13] MEDS: Acetylcysteine 600mgCAP(RENAL) PO SCH ×2 (08:19→21:32)
[2020-10-13] MEDS: Heparin 5000 UNITS/ML 1 mL VIAL SUBCUT SCH ×2 (08:19→21:32)
[2020-10-13] MEDS: Docusate LIQ 100 MG/10 ML UDC PO SCH ×2 (08:19→21:32)
[2020-10-13] MEDS ORDERED: Vancomycin per Pharmacy 1 EA NOTE FOLLOW UP SCH (09:00)
[2020-10-13] MEDS: Multivitamins ADULT w/MIN LIQ 15 ML UDC PO SCH (09:16)
[2020-10-13] MEDS: fentaNYL 100 mcg/2 ml 50 MCG/ML VIAL IV SLOW PU PRN (09:49)
[2020-10-13] MEDS: cefTRIAXone 2 GM ADDV.VIAL 2 GM in NS 0.9% 100 ml BAG 100 ML IV SCH ×2 (09:52→22:35)
[2020-10-13] MEDS ORDERED: Vancomycin 1,000 MG in NS 0.9% 250 ml 250 ML IVPB ONE (10:30)
[2020-10-13] MEDS: Nystatin TOP POWDER 15 GM BTL TOPICAL SCH ×2 (17:25→21:34)
[2020-10-13] MEDS: Vancomycin 1000 MG in NS 0.9% 250 ML IVPB SCH (17:53)
[2020-10-13] MEDS ORDERED: Lactated Ringers 1000 ml BAG 1,000 ML IV SCH (19:00)
[2020-10-13] MEDS: Insulin GLARGINE 100 un/ml 10 ml VIAL SUBCUT SCH (21:32)
[2020-10-14] MEDS: fentaNYL 100 mcg/2 ml 50 MCG/ML VIAL IV SLOW PU PRN (00:05)
[2020-10-14] MEDS: Vancomycin 1000 MG in NS 0.9% 250 ML IVPB SCH ×3 (02:16→18:10)
[2020-10-14] MEDS: Pantoprazole VIAL 40 MG VIAL IV SCH (02:16)
[2020-10-14] MEDS: Chlorhexidine MOUTHWASH 0.12% 15 ML UDC SCH ×7 (02:16→23:19)
[2020-10-14 04:29] LABS: ABS Eosinophils 0.1 10^3/ul (0-0.6); ABS Lymphocytes 0.7 10^3/ul (1.0-4.8); ABS Monocytes 0.4 10^3/ul (0-0.8); ABS Neutrophils 2.6 10^3/ul (1.5-7.7); Eosinophil % 2.2 %; Hematocrit 33 % (42-52); Hemoglobin 11.4 g/dL (14.0-18.0); Lymphocyte % 18.3 %; Mean Corpuscular HGB Conc 35 g/dL (31-36); Mean Corpuscular Hemoglobin 32 pg (27-31); Mean Corpuscular Volume 93 fL (80-94); Mean Platelet Volume 6.2 fL (7.4-10.4); Platelet Count 364 10^3/uL (150-450); Red Blood Count 3.57 10^6 /uL (4.18-5.48); Red Cell Distribution Width 14 % (10-15); White Blood Count 3.8 10^3/uL (3.5-10.8)
[2020-10-14 04:43] LABS: Anion Gap 6 mmol/L (2-11); Blood Urea Nitrogen 13 mg/dL (6-24); CO2 Carbon Dioxide 26 mmol/L (22-32); Calcium 7.7 mg/dL (8.6-10.3); Chloride 109 mmol/L (101-111); EGFR African American 361.9 (>60); EGFR Non-African American 299.1 (>60); Glucose 127 mg/dL (70-100); Magnesium 1.7 mg/dL (1.9-2.7); Phosphorus 1.5 mg/dL (2.5-5.0); Sodium 141 mmol/L (135-145)
[2020-10-14] MEDS ORDERED: Potassium Chloride LIQUID 20 MEQ/15 ML LIQUID PO ONE (05:04)
[2020-10-14] MEDS ORDERED: Potassium Phosphate IV 15 MMOLE in NS 0.9% 250 ml 250 ML IVPB ONE (08:00)
[2020-10-14] MEDS: Multivitamins ADULT w/MIN LIQ 15 ML UDC PO SCH (09:24)
[2020-10-14] MEDS: Heparin 5000 UNITS/ML 1 mL VIAL SUBCUT SCH ×2 (09:24→19:23)
[2020-10-14] MEDS: Acetylcysteine 600mgCAP(RENAL) PO SCH ×2 (09:25→19:27)
[2020-10-14] MEDS: Nystatin TOP POWDER 15 GM BTL TOPICAL SCH ×3 (09:25→19:44)
[2020-10-14] MEDS: Docusate LIQ 100 MG/10 ML UDC PO SCH (09:25)
[2020-10-14] MEDS ORDERED: Vancomycin Trough Check NOTE FOLLOW UP ONE (10:00)
[2020-10-14] MEDS: cefTRIAXone 2 GM ADDV.VIAL 2 GM in NS 0.9% 100 ml BAG 100 ML IV SCH ×2 (11:01→20:43)
[2020-10-14 11:31] LABS: EGFR African American 361.9 (>60); EGFR Non-African American 299.1 (>60)
[2020-10-14 11:50] LABS: Vancomycin Trough 14.4 mcg/mL
[2020-10-14] MEDS ORDERED: NORMOSOL-R pH 7.4 1000 mL BAG 1,000 ML IV SCH (12:00)
[2020-10-14] MEDS ORDERED: Albuterol/Ipratropium NEB.SOL (2.5/0.5 MG) 3 ML NEB.SOLN INH PRN (15:20)
[2020-10-14] MEDS: Haloperidol 5 mg/ml SDV IV/IM 5 MG/ML AMP IV SLOW PU PRN ×2 (16:09→22:07)
[2020-10-14] MEDS: Psyllium PAK PO SCH (18:10)
[2020-10-14] MEDS: Insulin GLARGINE 100 un/ml 10 ml VIAL SUBCUT SCH (19:43)
[2020-10-14 21:05] LABS: Anion Gap 7 mmol/L (2-11); Blood Urea Nitrogen 10 mg/dL (6-24); CO2 Carbon Dioxide 23 mmol/L (22-32); Chloride 106 mmol/L (101-111); EGFR African American 361.9 (>60); EGFR Non-African American 299.1 (>60); Glucose 141 mg/dL (70-100); Magnesium 1.6 mg/dL (1.9-2.7); Phosphorus 2.4 mg/dL (2.5-5.0); Potassium 3.9 mmol/L (3.5-5.0); Sodium 136 mmol/L (135-145)
[2020-10-14] MEDS ORDERED: Magnesium Sulf 4 GM/100 ML IV 4,000 MG/100 ML BAG IVPB ONE (21:10)
[2020-10-14] MEDS ORDERED: Potassium EFFERVES 25 meq TAB PO ONE (21:10)
[2020-10-15] MEDS: Vancomycin 1000 MG in NS 0.9% 250 ML IVPB SCH ×3 (00:43→17:38)
[2020-10-15] MEDS: Pantoprazole VIAL 40 MG VIAL IV SCH (00:46)
[2020-10-15] MEDS: Chlorhexidine MOUTHWASH 0.12% 15 ML UDC SCH ×4 (02:12→16:51)
[2020-10-15 04:20] LABS: EGFR African American 361.9 (>60); EGFR Non-African American 299.1 (>60); Magnesium 2.3 mg/dL (1.9-2.7); Phosphorus 2.3 mg/dL (2.5-5.0); Potassium 4.2 mmol/L (3.5-5.0)
[2020-10-15] MEDS ORDERED: Furosemide 40 mg/4 ml IV VIAL IV SLOW PU ONE (08:35)
[2020-10-15] MEDS: Psyllium PAK PO SCH (09:43)
[2020-10-15] MEDS: cefTRIAXone 2 GM ADDV.VIAL 2 GM in NS 0.9% 100 ml BAG 100 ML IV SCH ×2 (09:47→22:21)
[2020-10-15] MEDS: Heparin 5000 UNITS/ML 1 mL VIAL SUBCUT SCH ×2 (09:48→20:37)
[2020-10-15] MEDS: Nystatin TOP POWDER 15 GM BTL TOPICAL SCH ×3 (10:10→20:38)
[2020-10-15] MEDS: Multivitamins ADULT w/MIN LIQ 15 ML UDC PO SCH (10:11)
[2020-10-15] MEDS: Acetylcysteine 600mgCAP(RENAL) PO SCH ×2 (10:11→20:47)
[2020-10-15] MEDS: Insulin GLARGINE 100 un/ml 10 ml VIAL SUBCUT SCH (20:44)
[2020-10-16] MEDS: Vancomycin 1000 MG in NS 0.9% 250 ML IVPB SCH ×2 (02:01→12:53)
[2020-10-16] MEDS: Pantoprazole VIAL 40 MG VIAL IV SCH ×2 (02:01→11:31)
[2020-10-16 06:29] LABS: ABS Eosinophils 0.1 10^3/ul (0-0.6); ABS Lymphocytes 0.7 10^3/ul (1.0-4.8); ABS Monocytes 0.5 10^3/ul (0-0.8); ABS Neutrophils 2.2 10^3/ul (1.5-7.7); Eosinophil % 1.8 %; Hematocrit 36 % (42-52); Hemoglobin 12.3 g/dL (14.0-18.0); Lymphocyte % 19.2 %; Mean Corpuscular HGB Conc 34 g/dL (31-36); Mean Corpuscular Hemoglobin 32 pg (27-31); Mean Corpuscular Volume 94 fL (80-94); Mean Platelet Volume 5.8 fL (7.4-10.4); Nucleated Red Blood Cells % 0.4; Platelet Count 438 10^3/uL (150-450); Red Blood Count 3.85 10^6 /uL (4.18-5.48); Red Cell Distribution Width 14 % (10-15); White Blood Count 3.5 10^3/uL (3.5-10.8)
[2020-10-16 06:46] LABS: Calcium 8.2 mg/dL (8.6-10.3); EGFR African American 324.2 (>60); EGFR Non-African American 267.9 (>60); Potassium 3.7 mmol/L (3.5-5.0)
[2020-10-16] MEDS: cefTRIAXone 2 GM ADDV.VIAL 2 GM in NS 0.9% 100 ml BAG 100 ML IV SCH ×2 (11:29→22:31)
[2020-10-16] MEDS: Heparin 5000 UNITS/ML 1 mL VIAL SUBCUT SCH ×2 (11:30→21:47)
[2020-10-16] MEDS: Acetylcysteine 600mgCAP(RENAL) PO SCH ×2 (11:31→21:48)
[2020-10-16] MEDS: Multivitamins ADULT w/MIN LIQ 15 ML UDC PO SCH (11:31)
[2020-10-16] MEDS: Psyllium PAK PO SCH (11:32)
[2020-10-16] MEDS: Nystatin TOP POWDER 15 GM BTL TOPICAL SCH ×3 (11:34→22:31)
[2020-10-16] MEDS: Insulin GLARGINE 100 un/ml 10 ml VIAL SUBCUT SCH (21:47)
[2020-10-17 05:35] LABS: ABS Eosinophils 0.1 10^3/ul (0-0.6); ABS Lymphocytes 0.6 10^3/ul (1.0-4.8); ABS Monocytes 0.4 10^3/ul (0-0.8); ABS Neutrophils 1.8 10^3/ul (1.5-7.7); Eosinophil % 2.3 %; Hematocrit 33 % (42-52); Hemoglobin 11.2 g/dL (14.0-18.0); Lymphocyte % 20.3 %; Mean Corpuscular HGB Conc 34 g/dL (31-36); Mean Corpuscular Hemoglobin 32 pg (27-31); Mean Corpuscular Volume 93 fL (80-94); Mean Platelet Volume 5.6 fL (7.4-10.4); Nucleated Red Blood Cells % 0.1; Platelet Count 415 10^3/uL (150-450); Red Blood Count 3.53 10^6 /uL (4.18-5.48); Red Cell Distribution Width 14 % (10-15)
[2020-10-17 05:49] LABS: Calcium 8.2 mg/dL (8.6-10.3); EGFR African American 348.4 (>60); EGFR Non-African American 287.9 (>60); Magnesium 1.5 mg/dL (1.9-2.7); Potassium 3.4 mmol/L (3.5-5.0)
[2020-10-17] MEDS ORDERED: Vancomycin Random Level NOTE FOLLOW UP ONE (06:00)
[2020-10-17] MEDS ORDERED: Magnesium Sulfate 2 gm BAG 2 GM/50 ML BAG IVPB ONE (08:00)
[2020-10-17] MEDS: Heparin 5000 UNITS/ML 1 mL VIAL SUBCUT SCH ×2 (09:41→20:48)
[2020-10-17] MEDS: Pantoprazole VIAL 40 MG VIAL IV SCH (09:43)
[2020-10-17] MEDS: Acetylcysteine 600mgCAP(RENAL) PO SCH ×2 (09:49→20:46)
[2020-10-17] MEDS: Multivitamins ADULT w/MIN LIQ 15 ML UDC NG TUBE SCH (09:49)
[2020-10-17] MEDS: Nystatin TOP POWDER 15 GM BTL TOPICAL SCH ×3 (09:49→20:48)
[2020-10-17] MEDS: cefTRIAXone 2 GM ADDV.VIAL 2 GM in NS 0.9% 100 ml BAG 100 ML IV SCH ×2 (09:50→20:48)
[2020-10-17] MEDS: KCL 10 MEQ/50 ML IVPREMIX 10 MEQ/50 ML BAG IV ONE ×2 (11:31→11:33)
[2020-10-17] MEDS: Vancomycin 1000 MG in NS 0.9% 250 ML IVPB SCH (13:44)
[2020-10-17] MEDS: Insulin GLARGINE 100 un/ml 10 ml VIAL SUBCUT SCH (20:48)
[2020-10-18] MEDS: Lactated Ringers 1000 ml BAG 1,000 ML IV SCH (00:08)
[2020-10-18 06:27] LABS: ABS Eosinophils 0.1 10^3/ul (0-0.6); ABS Lymphocytes 0.7 10^3/ul (1.0-4.8); ABS Monocytes 0.4 10^3/ul (0-0.8); ABS Neutrophils 2.3 10^3/ul (1.5-7.7); Eosinophil % 2.6 %; Hematocrit 34 % (42-52); Hemoglobin 11.9 g/dL (14.0-18.0); Lymphocyte % 19.3 %; Mean Corpuscular HGB Conc 35 g/dL (31-36); Mean Corpuscular Hemoglobin 32 pg (27-31); Mean Corpuscular Volume 93 fL (80-94); Mean Platelet Volume 5.9 fL (7.4-10.4); Nucleated Red Blood Cells % 0.1; Platelet Count 470 10^3/uL (150-450); Red Blood Count 3.66 10^6 /uL (4.18-5.48); Red Cell Distribution Width 15 % (10-15); White Blood Count 3.5 10^3/uL (3.5-10.8)
[2020-10-18 06:50] LABS: Anion Gap 8 mmol/L (2-11); Blood Urea Nitrogen 5 mg/dL (6-24); CO2 Carbon Dioxide 28 mmol/L (22-32); Calcium 8.4 mg/dL (8.6-10.3); Chloride 108 mmol/L (101-111); EGFR African American 361.9 (>60); EGFR Non-African American 299.1 (>60); Glucose 89 mg/dL (70-100); Magnesium 1.7 mg/dL (1.9-2.7); Potassium 3.6 mmol/L (3.5-5.0); Sodium 144 mmol/L (135-145)
[2020-10-18] MEDS ORDERED: Magnesium Sulfate IV 3 GM in NS 0.9% 100 ml BAG 100 ML IVPB ONE (08:00)
[2020-10-18] MEDS: Acetylcysteine 600mgCAP(RENAL) PO SCH ×2 (08:40→21:07)
[2020-10-18] MEDS: Multivitamins ADULT w/MIN LIQ 15 ML UDC NG TUBE SCH (08:40)
[2020-10-18] MEDS: Nystatin TOP POWDER 15 GM BTL TOPICAL SCH ×3 (09:21→21:46)
[2020-10-18] MEDS: Heparin 5000 UNITS/ML 1 mL VIAL SUBCUT SCH ×2 (09:22→21:46)
[2020-10-18] MEDS: Pantoprazole VIAL 40 MG VIAL IV SCH (09:23)
[2020-10-18] MEDS: cefTRIAXone 2 GM ADDV.VIAL 2 GM in NS 0.9% 100 ml BAG 100 ML IV SCH (09:27)
[2020-10-18] MEDS: Vancomycin 1000 MG in NS 0.9% 250 ML IVPB SCH (10:27)
[2020-10-18] MEDS: Levothyroxine 100 MCG/5 ML VIAL IV SCH (12:31)
[2020-10-18 15:31] LABS: Urine Appearance Clear; Urine Bilirubin Negative (Negative); Urine Blood 1+ (Negative); Urine Color Yellow; Urine Glucose Negative (Negative); Urine Ketones Trace (Negative); Urine Nitrite Negative (Negative); Urine Protein Negative (Negative); Urine Specific Gravity 1.009 (1.002-1.030); Urine Urobilinogen Negative (Negative)
[2020-10-18 15:33] LABS: Urine Bacteria Absent (Absent); Urine Red Blood Cell 3+(>10/hpf) (Absent); Urine White Blood Cell Trace(0-5/hpf) (Absent)
[2020-10-18] MEDS: Insulin GLARGINE 100 un/ml 10 ml VIAL SUBCUT SCH (21:48)
[2020-10-19] MEDS: cefTRIAXone 2 GM ADDV.VIAL 2 GM in NS 0.9% 100 ml BAG 100 ML IV SCH ×2 (01:06→09:14)
[2020-10-19] MEDS: Lactated Ringers 1000 ml BAG 1,000 ML IV SCH ×2 (01:07→20:14)
[2020-10-19] MEDS: Levothyroxine 100 MCG/5 ML VIAL IV SCH (05:29)
[2020-10-19] MEDS: Acetylcysteine 600mgCAP(RENAL) PO SCH (08:53)
[2020-10-19] MEDS: Multivitamins ADULT w/MIN LIQ 15 ML UDC NG TUBE SCH (08:54)
[2020-10-19] MEDS: Pantoprazole VIAL 40 MG VIAL IV SCH (09:11)
[2020-10-19] MEDS: Nystatin TOP POWDER 15 GM BTL TOPICAL SCH ×3 (09:11→21:12)
[2020-10-19] MEDS ORDERED: Vancomycin Trough Check NOTE FOLLOW UP ONE (10:00)
[2020-10-19 10:22] LABS: ABS Eosinophils 0.1 10^3/ul (0-0.6); ABS Lymphocytes 0.7 10^3/ul (1.0-4.8); ABS Monocytes 0.4 10^3/ul (0-0.8); ABS Neutrophils 3.7 10^3/ul (1.5-7.7); Eosinophil % 1.2 %; Hematocrit 42 % (42-52); Hemoglobin 13.8 g/dL (14.0-18.0); Lymphocyte % 14.6 %; Mean Corpuscular HGB Conc 33 g/dL (31-36); Mean Corpuscular Hemoglobin 32 pg (27-31); Mean Corpuscular Volume 97 fL (80-94); Mean Platelet Volume 5.9 fL (7.4-10.4); Nucleated Red Blood Cells % 0.1; Platelet Count 403 10^3/uL (150-450); Red Cell Distribution Width 15 % (10-15); White Blood Count 4.9 10^3/uL (3.5-10.8)
[2020-10-19 10:26] LABS: Calcium 8.5 mg/dL (8.6-10.3); Magnesium 1.8 mg/dL (1.9-2.7); Potassium 3.9 mmol/L (3.5-5.0)
[2020-10-19 10:32] LABS: EGFR African American 267.3 (>60); EGFR Non-African American 220.9 (>60)
[2020-10-19] MEDS: Vancomycin 1000 MG in NS 0.9% 250 ML IVPB SCH (11:12)
[2020-10-19] MEDS ORDERED: Midazolam 2 mg/2 ml VIAL 1 mg/ml 2 ml VIAL (2 mg) ONE (13:30)
[2020-10-19] MEDS ORDERED: Propofol 10 MG/ML 20 ML BTL ONE ×2 (13:30→14:06)
[2020-10-19] MEDS ORDERED: Lidocaine 2% PF 5 ML VIAL ONE (13:30)
[2020-10-19] MEDS ORDERED: Magnesium Sulfate 2 gm BAG 2 GM/50 ML BAG IVPB ONE (13:32)
[2020-10-19] MEDS: Atropine 1% (ORAL/SL) 15 ML BTL SL SCH ×2 (17:20→21:11)
[2020-10-19] MEDS: Insulin GLARGINE 100 un/ml 10 ml VIAL SUBCUT SCH (21:11)
[2020-10-20] MEDS: Atropine 1% (ORAL/SL) 15 ML BTL SL SCH ×4 (02:00→22:11)
[2020-10-20] MEDS: Levothyroxine 100 MCG/5 ML VIAL IV SCH (05:38)
[2020-10-20 05:45] LABS: ABS Eosinophils 0.1 10^3/ul (0-0.6); ABS Lymphocytes 0.7 10^3/ul (1.0-4.8); ABS Monocytes 0.5 10^3/ul (0-0.8); ABS Neutrophils 3.9 10^3/ul (1.5-7.7); Eosinophil % 1.2 %; Hematocrit 36 % (42-52); Hemoglobin 12.1 g/dL (14.0-18.0); Lymphocyte % 13.6 %; Mean Corpuscular HGB Conc 34 g/dL (31-36); Mean Corpuscular Hemoglobin 32 pg (27-31); Mean Corpuscular Volume 94 fL (80-94); Mean Platelet Volume 5.3 fL (7.4-10.4); Platelet Count 463 10^3/uL (150-450); Red Blood Count 3.82 10^6 /uL (4.18-5.48); Red Cell Distribution Width 15 % (10-15); White Blood Count 5.1 10^3/uL (3.5-10.8)
[2020-10-20 05:59] LABS: Calcium 8.5 mg/dL (8.6-10.3); EGFR African American 238.8 (>60); EGFR Non-African American 197.4 (>60); Magnesium 1.8 mg/dL (1.9-2.7); Potassium 3.4 mmol/L (3.5-5.0)
[2020-10-20] MEDS ORDERED: Magnesium Sulfate 2 gm BAG 2 GM/50 ML BAG IVPB ONE (07:16)
[2020-10-20] MEDS ORDERED: KCL 20 MEQ/100 ML IVPREMIX 20 MEQ/100 ML BAG IV ONE (07:16)
[2020-10-20] MEDS ORDERED: Vancomycin 1,250 MG in NS 0.9% 250 ml 250 ML IVPB SCH (08:00)
[2020-10-20] MEDS: Multivitamins ADULT w/MIN LIQ 15 ML UDC NG TUBE SCH (10:29)
[2020-10-20] MEDS: Pantoprazole VIAL 40 MG VIAL IV SCH (10:29)
[2020-10-20] MEDS: Nystatin TOP POWDER 15 GM BTL TOPICAL SCH ×3 (10:30→22:11)
[2020-10-20] MEDS: Enoxaparin 40 MG/0.4 ML SYR SUBCUT SCH (13:32)
[2020-10-20] MEDS: Lactated Ringers 1000 ml BAG 1,000 ML IV SCH (15:52)
[2020-10-20] MEDS: Insulin GLARGINE 100 un/ml 10 ml VIAL SUBCUT SCH (22:16)
[2020-10-21] MEDS: Atropine 1% (ORAL/SL) 15 ML BTL SL SCH ×4 (03:00→19:55)
[2020-10-21 04:44] LABS: ABS Eosinophils 0.1 10^3/ul (0-0.6); ABS Lymphocytes 0.7 10^3/ul (1.0-4.8); ABS Monocytes 0.6 10^3/ul (0-0.8); ABS Neutrophils 4.6 10^3/ul (1.5-7.7); Eosinophil % 1.1 %; Hematocrit 33 % (42-52); Hemoglobin 11.2 g/dL (14.0-18.0); Lymphocyte % 11.1 %; Mean Corpuscular HGB Conc 34 g/dL (31-36); Mean Corpuscular Hemoglobin 32 pg (27-31); Mean Corpuscular Volume 94 fL (80-94); Mean Platelet Volume 5.7 fL (7.4-10.4); Platelet Count 446 10^3/uL (150-450); Red Blood Count 3.49 10^6 /uL (4.18-5.48); Red Cell Distribution Width 14 % (10-15)
[2020-10-21 05:01] LABS: Albumin 2.4 g/dL (3.2-5.2); Calcium 8.2 mg/dL (8.6-10.3); EGFR African American 275.5 (>60); EGFR Non-African American 227.7 (>60); Globulin 2.5 g/dL (2-4); Magnesium 1.7 mg/dL (1.9-2.7); Potassium 3.2 mmol/L (3.5-5.0); Total Bilirubin 0.4 mg/dL (0.2-1.0); Total Protein 4.9 g/dL (6.4-8.9)
[2020-10-21] MEDS ORDERED: Magnesium Sulfate 2 gm BAG 2 GM/50 ML BAG IVPB ONE (07:19)
[2020-10-21] MEDS: Lactated Ringers 1000 ml BAG 1,000 ML IV SCH (07:49)
[2020-10-21] MEDS: Nystatin TOP POWDER 15 GM BTL TOPICAL SCH ×3 (07:50→20:01)
[2020-10-21] MEDS: Lansoprazole SUSP ORALSYR 3 MG/ML PEG TUBE SCH (07:50)
[2020-10-21] MEDS: Multivitamins ADULT w/MIN LIQ 15 ML UDC PEG TUBE SCH (07:50)
[2020-10-21] MEDS ORDERED: Potassium Chloride LIQUID 20 MEQ/15 ML LIQUID PO ONE (08:15)
[2020-10-21] MEDS: Enoxaparin 40 MG/0.4 ML SYR SUBCUT SCH (12:49)
[2020-10-21] MEDS: Insulin GLARGINE 100 un/ml 10 ml VIAL SUBCUT SCH (19:55)
[2020-10-22] MEDS: Atropine 1% (ORAL/SL) 15 ML BTL SL SCH ×4 (02:59→20:25)
[2020-10-22 05:03] LABS: ABS Eosinophils 0.1 10^3/ul (0-0.6); ABS Lymphocytes 0.7 10^3/ul (1.0-4.8); ABS Monocytes 0.5 10^3/ul (0-0.8); ABS Neutrophils 2.6 10^3/ul (1.5-7.7); Eosinophil % 1.5 %; Hematocrit 37 % (42-52); Hemoglobin 12.1 g/dL (14.0-18.0); Lymphocyte % 16.7 %; Mean Corpuscular HGB Conc 33 g/dL (31-36); Mean Corpuscular Hemoglobin 32 pg (27-31); Mean Corpuscular Volume 97 fL (80-94); Mean Platelet Volume 5.7 fL (7.4-10.4); Platelet Count 365 10^3/uL (150-450); Red Blood Count 3.78 10^6 /uL (4.18-5.48); Red Cell Distribution Width 15 % (10-15); White Blood Count 3.9 10^3/uL (3.5-10.8)
[2020-10-22 05:04] LABS: Calcium 8.4 mg/dL (8.6-10.3); EGFR African American 302.9 (>60); EGFR Non-African American 250.3 (>60); Magnesium 1.6 mg/dL (1.9-2.7); Potassium 3.6 mmol/L (3.5-5.0)
[2020-10-22] MEDS ORDERED: Magnesium Sulfate 2 gm BAG 2 GM/50 ML BAG IVPB ONE (07:20)
[2020-10-22] MEDS ORDERED: Vancomycin Trough Check NOTE FOLLOW UP ONE (07:30)
[2020-10-22] MEDS: Nystatin TOP POWDER 15 GM BTL TOPICAL SCH ×3 (09:30→20:24)
[2020-10-22] MEDS: Multivitamins ADULT w/MIN LIQ 15 ML UDC PEG TUBE SCH (09:30)
[2020-10-22] MEDS: Lansoprazole SUSP ORALSYR 3 MG/ML PEG TUBE SCH (09:30)
[2020-10-22 12:42] LABS: Albumin 1.7 g/dL (3.4-4.7); Albumin/Globulin Ratio 0.67; Gamma Globulin 0.6 g/dL (0.6-1.6); Total Protein(PEP) 4.2 g/dL (6.3 - 7.9)
[2020-10-22] MEDS: Enoxaparin 40 MG/0.4 ML SYR SUBCUT SCH (13:21)
[2020-10-22] MEDS ORDERED: Metoclopramide LIQUID 1 mg/ml 10 ml ORAL.SOLN (10 mg) PEG TUBE PRN (13:44)
[2020-10-22] MEDS: Insulin GLARGINE 100 un/ml 10 ml VIAL SUBCUT SCH (20:21)
[2020-10-23] MEDS: Atropine 1% (ORAL/SL) 15 ML BTL SL SCH ×4 (03:05→21:20)
[2020-10-23 05:50] LABS: Calcium 8.7 mg/dL (8.6-10.3); EGFR African American 275.5 (>60); EGFR Non-African American 227.7 (>60); Magnesium 1.8 mg/dL (1.9-2.7)
[2020-10-23 06:13] LABS: Potassium 3.5 mmol/L (3.5-5.0)
[2020-10-23] MEDS: Lansoprazole SUSP ORALSYR 3 MG/ML PEG TUBE SCH (08:50)
[2020-10-23] MEDS: Multivitamins ADULT w/MIN LIQ 15 ML UDC PEG TUBE SCH (08:51)
[2020-10-23] MEDS: Nystatin TOP POWDER 15 GM BTL TOPICAL SCH ×3 (08:54→21:23)
[2020-10-23] MEDS: Enoxaparin 40 MG/0.4 ML SYR SUBCUT SCH (14:23)
[2020-10-23] MEDS: Insulin GLARGINE 100 un/ml 10 ml VIAL SUBCUT SCH (21:21)
[2020-10-24] MEDS: Atropine 1% (ORAL/SL) 15 ML BTL SL SCH ×4 (02:18→20:15)
[2020-10-24 08:43] LABS: ABS Eosinophils 0.1 10^3/ul (0-0.6); ABS Monocytes 0.5 10^3/ul (0-0.8); ABS Neutrophils 3.8 10^3/ul (1.5-7.7); Eosinophil % 1.8 %; Hematocrit 35 % (42-52); Hemoglobin 11.6 g/dL (14.0-18.0); Lymphocyte % 18.3 %; Mean Corpuscular HGB Conc 33 g/dL (31-36); Mean Corpuscular Hemoglobin 31 pg (27-31); Mean Corpuscular Volume 95 fL (80-94); Mean Platelet Volume 5.7 fL (7.4-10.4); Platelet Count 312 10^3/uL (150-450); Red Blood Count 3.71 10^6 /uL (4.18-5.48); Red Cell Distribution Width 15 % (10-15); White Blood Count 5.3 10^3/uL (3.5-10.8)
[2020-10-24 08:59] LABS: Calcium 8.5 mg/dL (8.6-10.3); EGFR African American 275.5 (>60); EGFR Non-African American 227.7 (>60); Magnesium 1.6 mg/dL (1.9-2.7); Potassium 3.3 mmol/L (3.5-5.0)
[2020-10-24] MEDS: Lansoprazole SUSP ORALSYR 3 MG/ML PEG TUBE SCH (10:32)
[2020-10-24] MEDS: Nystatin TOP POWDER 15 GM BTL TOPICAL SCH ×3 (10:32→21:31)
[2020-10-24] MEDS: Multivitamins ADULT w/MIN LIQ 15 ML UDC PEG TUBE SCH (10:33)
[2020-10-24] MEDS ORDERED: Magnesium Sulfate IV 3 GM in NS 0.9% 100 ml BAG 100 ML IVPB ONE (12:21)
[2020-10-24] MEDS: Enoxaparin 40 MG/0.4 ML SYR SUBCUT SCH (13:26)
[2020-10-24] MEDS ORDERED: Ondansetron 4 mg VIAL 2 MG/ML 2 ml VIAL IV ONE (13:48)
[2020-10-24] MEDS: KCL 20 MEQ/100 ML IVPREMIX 20 MEQ/100 ML BAG IV SCH ×2 (16:16→20:14)
[2020-10-24] MEDS: Insulin GLARGINE 100 un/ml 10 ml VIAL SUBCUT SCH (20:20)
[2020-10-25] MEDS: Atropine 1% (ORAL/SL) 15 ML BTL SL SCH ×4 (02:14→21:22)
[2020-10-25 07:33] LABS: ABS Eosinophils 0.1 10^3/ul (0-0.6); ABS Monocytes 0.4 10^3/ul (0-0.8); Hematocrit 31 % (42-52); Hemoglobin 10.7 g/dL (14.0-18.0); Lymphocyte % 28.5 %; Mean Corpuscular HGB Conc 35 g/dL (31-36); Mean Corpuscular Hemoglobin 32 pg (27-31); Mean Corpuscular Volume 94 fL (80-94); Mean Platelet Volume 6.1 fL (7.4-10.4); Platelet Count 244 10^3/uL (150-450); Red Cell Distribution Width 15 % (10-15); White Blood Count 3.5 10^3/uL (3.5-10.8)
[2020-10-25 07:44] LABS: Calcium 8.2 mg/dL (8.6-10.3); EGFR African American 232.6 (>60); EGFR Non-African American 192.2 (>60); Phosphorus 2.8 mg/dL (2.5-5.0); Potassium 3.8 mmol/L (3.5-5.0)
[2020-10-25] MEDS: Multivitamins ADULT w/MIN LIQ 15 ML UDC PEG TUBE SCH (10:07)
[2020-10-25] MEDS: Lansoprazole SUSP ORALSYR 3 MG/ML PEG TUBE SCH (10:10)
[2020-10-25] MEDS: Nystatin TOP POWDER 15 GM BTL TOPICAL SCH ×3 (11:17→22:32)
[2020-10-25] MEDS: Enoxaparin 40 MG/0.4 ML SYR SUBCUT SCH (13:56)
[2020-10-25] MEDS: Insulin GLARGINE 100 un/ml 10 ml VIAL SUBCUT SCH (21:23)
[2020-10-26] MEDS: Atropine 1% (ORAL/SL) 15 ML BTL SL SCH ×4 (01:28→21:16)
[2020-10-26 10:58] LABS: Calcium 8.4 mg/dL (8.6-10.3); EGFR African American 259.6 (>60); EGFR Non-African American 214.6 (>60); Potassium 3.6 mmol/L (3.5-5.0)
[2020-10-26] MEDS: Multivitamins ADULT w/MIN LIQ 15 ML UDC PEG TUBE SCH (11:03)
[2020-10-26] MEDS: Nystatin TOP POWDER 15 GM BTL TOPICAL SCH ×3 (11:03→21:15)
[2020-10-26] MEDS: Lansoprazole SUSP ORALSYR 3 MG/ML PEG TUBE SCH (11:04)
[2020-10-26] MEDS ORDERED: Potassium Chloride LIQUID 20 MEQ/15 ML LIQUID PEG TUBE ONE (14:23)
[2020-10-26] MEDS: Enoxaparin 40 MG/0.4 ML SYR SUBCUT SCH (16:06)
[2020-10-26] MEDS: Insulin GLARGINE 100 un/ml 10 ml VIAL SUBCUT SCH (21:16)
[2020-10-27] MEDS: Atropine 1% (ORAL/SL) 15 ML BTL SL SCH ×4 (02:49→22:41)
[2020-10-27 06:34] LABS: ABS Eosinophils 0.1 10^3/ul (0-0.6); ABS Monocytes 0.4 10^3/ul (0-0.8); ABS Neutrophils 1.7 10^3/ul (1.5-7.7); Eosinophil % 2.9 %; Hematocrit 33 % (42-52); Hemoglobin 11.4 g/dL (14.0-18.0); Lymphocyte % 32.2 %; Mean Corpuscular HGB Conc 35 g/dL (31-36); Mean Corpuscular Hemoglobin 33 pg (27-31); Mean Corpuscular Volume 94 fL (80-94); Mean Platelet Volume 5.9 fL (7.4-10.4); Nucleated Red Blood Cells % 0.1; Platelet Count 206 10^3/uL (150-450); Red Blood Count 3.49 10^6 /uL (4.18-5.48); Red Cell Distribution Width 15 % (10-15); White Blood Count 3.3 10^3/uL (3.5-10.8)
[2020-10-27 06:53] LABS: Calcium 8.6 mg/dL (8.6-10.3); EGFR African American 267.3 (>60); EGFR Non-African American 220.9 (>60); Potassium 3.7 mmol/L (3.5-5.0)
[2020-10-27] MEDS: Nystatin TOP POWDER 15 GM BTL TOPICAL SCH ×3 (08:25→22:41)
[2020-10-27] MEDS: Lansoprazole SUSP ORALSYR 3 MG/ML PEG TUBE SCH (08:25)
[2020-10-27] MEDS: Multivitamins ADULT w/MIN LIQ 15 ML UDC PEG TUBE SCH (08:25)
[2020-10-27] MEDS: Enoxaparin 40 MG/0.4 ML SYR SUBCUT SCH (13:08)
[2020-10-27] MEDS: Insulin GLARGINE 100 un/ml 10 ml VIAL SUBCUT SCH (22:44)
[2020-10-28] MEDS: Atropine 1% (ORAL/SL) 15 ML BTL SL SCH ×4 (03:01→22:05)
[2020-10-28] MEDS: Nystatin TOP POWDER 15 GM BTL TOPICAL SCH ×3 (10:27→22:06)
[2020-10-28] MEDS: Lansoprazole SUSP ORALSYR 3 MG/ML PEG TUBE SCH (10:27)
[2020-10-28] MEDS: Multivitamins ADULT w/MIN LIQ 15 ML UDC PEG TUBE SCH (10:27)
[2020-10-28] MEDS: Enoxaparin 40 MG/0.4 ML SYR SUBCUT SCH (12:57)
[2020-10-28] MEDS: Magnesium Hydroxide LIQ 30 ML UDC PO PRN (14:24)
[2020-10-28] MEDS: Senna TAB 8.6 mg TAB PO SCH (22:05)
[2020-10-28] MEDS: Insulin GLARGINE 100 un/ml 10 ml VIAL SUBCUT SCH (22:22)
[2020-10-29] MEDS: Atropine 1% (ORAL/SL) 15 ML BTL SL SCH ×4 (01:02→22:26)
[2020-10-29] MEDS: Lansoprazole SUSP ORALSYR 3 MG/ML PEG TUBE SCH (08:59)
[2020-10-29] MEDS: Nystatin TOP POWDER 15 GM BTL TOPICAL SCH ×3 (09:03→22:28)
[2020-10-29] MEDS: Multivitamins ADULT w/MIN LIQ 15 ML UDC PEG TUBE SCH (09:53)
[2020-10-29] MEDS ORDERED: Mineral Oil ENEMA 118 ML/BOTTLE BOTTLE PR ONE (10:19)
[2020-10-29] MEDS ORDERED: Ondansetron 4 mg VIAL 2 MG/ML 2 ml VIAL IV PRN (10:27)
[2020-10-29] MEDS: Magnesium Hydroxide LIQ 30 ML UDC PO PRN (10:47)
[2020-10-29] MEDS: Enoxaparin 40 MG/0.4 ML SYR SUBCUT SCH (15:40)
[2020-10-29] MEDS: Senna TAB 8.6 mg TAB PO SCH (22:27)
[2020-10-29] MEDS: Insulin GLARGINE 100 un/ml 10 ml VIAL SUBCUT SCH (22:27)
[2020-10-30] MEDS: Atropine 1% (ORAL/SL) 15 ML BTL SL SCH ×2 (01:43→08:55)
[2020-10-30] MEDS: Lansoprazole SUSP ORALSYR 3 MG/ML PEG TUBE SCH (08:56)
[2020-10-30] MEDS: Nystatin TOP POWDER 15 GM BTL TOPICAL SCH (08:57)
[2020-10-30] MEDS: Multivitamins ADULT w/MIN LIQ 15 ML UDC PEG TUBE SCH (08:57)
[2020-10-30 11:05] LABS: Urine Appearance Clear; Urine Bilirubin Negative (Negative); Urine Blood Negative (Negative); Urine Color Yellow; Urine Glucose Negative (Negative); Urine Ketones Negative (Negative); Urine Nitrite Negative (Negative); Urine Protein Negative (Negative); Urine Specific Gravity 1.011 (1.002-1.030); Urine Urobilinogen Negative (Negative)
[2020-10-30 11:52] VITALS: BP 116/80
== END 2020-10-30 15:05 | DRG 871 ==
LOC: ED 19:19 → ICU 22:01 → MEDTELE 10-04 11:39 → ICU 10-09 16:07 → MED 10-15 23:01
PROVIDERS: ADMIT Hospitalist; ATTEND Hospitalist
PROC: O.GIPEG (2020-10-19 13:40)

== ENCOUNTER 2021-01-11 13:24 | Inpatient (IN) ==
[2021-01-11] MEDS ORDERED: Norepinephrine 16MCG/ML IVPRE 4,000 MCG/250 ML BAG IV ONE (14:00)
[2021-01-11] MEDS ORDERED: Norepinephrine 16MCG/ML IVPRE 4,000 MCG/250 ML BAG IV SCH ×2 (14:00→14:59)
[2021-01-11 14:02] LABS: ALT 27 U/L (7-52); Albumin/Globulin Ratio 1.2 (1-3); Alkaline Phosphatase 118 U/L (35-149); Blood Urea Nitrogen 16 mg/dL (6-24); CO2 Carbon Dioxide 18 mmol/L (22-32); Calcium 9.1 mg/dL (8.6-10.3); Chloride 105 mmol/L (101-111); EGFR African American 215.5 (>60); EGFR Non-African American 178.1 (>60); Globulin 2.6 g/dL (2-4); Glucose 241 mg/dL (70-100); Sodium 141 mmol/L (135-145); Total Protein 5.6 g/dL (6.4-8.9)
[2021-01-11 14:15] LABS: ABS Eosinophils 0.2 10^3/ul (0-0.6); ABS Lymphocytes 11.8 10^3/ul (1.0-4.8); ABS Monocytes 1.3 10^3/ul (0-0.8); ABS Neutrophils 5.8 10^3/ul (1.5-7.7); ABS Nucleated RBC 0.1 10^3/ul; Eosinophil % 1.3 %; Hematocrit 43 % (42-52); Hemoglobin 13.4 g/dL (14.0-18.0); Lymphocyte % 61.8 %; Mean Corpuscular HGB Conc 31 g/dL (31-36); Mean Corpuscular Hemoglobin 31 pg (27-31); Mean Corpuscular Volume 98 fL (80-94); Mean Platelet Volume 6.6 fL (7.4-10.4); Nucleated Red Blood Cells % 0.3; Platelet Count 227 10^3/uL (150-450); Red Blood Count 4.36 10^6 /uL (4.18-5.48); Red Cell Distribution Width 15 % (10-15); White Blood Count 19.2 10^3/uL (3.5-10.8)
[2021-01-11 14:17] LABS: PCO2 Arterial 48 mmHg (35-45); PO2 Arterial 78 mmHg (80-100)
[2021-01-11 14:19] LABS: Anion Gap 18 mmol/L (2-11)
[2021-01-11] MEDS ORDERED: Dextrose 50% Syringe 50 ml 25 GM/50 ML SYRINGE IV PUSH PRN (14:59)
[2021-01-11] MEDS ORDERED: Meperidine 50 mg/ml SYRINGE 1 ml IV PRN (15:00)
[2021-01-11 15:18] LABS: Magnesium 2.1 mg/dL (1.9-2.7); Phosphorus 9.6 mg/dL (2.5-5.0)
[2021-01-11] MEDS ORDERED: Enoxaparin 40 MG/0.4 ML SYR SUBCUT SCH (16:00)
[2021-01-11] MEDS ORDERED: Propofol 10 mg/ml 100 ML BTL 100 ML IV SCH (16:00)
[2021-01-11 17:47] LABS: Calcium 8.9 mg/dL (8.6-10.3); EGFR African American 191.8 (>60); EGFR Non-African American 158.5 (>60); Potassium 3.2 mmol/L (3.5-5.0)
[2021-01-11] MEDS: KCL 20 MEQ/100 ML IVPREMIX 20 MEQ/100 ML BAG IV SCH ×2 (20:33→23:05)
[2021-01-11 22:15] LABS: INR 1.11 (0.86-1.15)
[2021-01-11] MEDS ORDERED: Metoprolol Tartrate 5 mg VIAL 5 ml VIAL (1 mg/ml) IV ONE (23:02)
[2021-01-12] MEDS ORDERED: Pantoprazole VIAL 40 MG VIAL IV SCH (02:00)
[2021-01-12] MEDS: KCL 20 MEQ/100 ML IVPREMIX 20 MEQ/100 ML BAG IV SCH (02:29)
[2021-01-12 05:29] LABS: Hematocrit 44 % (42-52); Hemoglobin 15.2 g/dL (14.0-18.0); Mean Corpuscular HGB Conc 34 g/dL (31-36); Mean Corpuscular Hemoglobin 31 pg (27-31); Mean Corpuscular Volume 91 fL (80-94); Mean Platelet Volume 6.3 fL (7.4-10.4); Platelet Count 260 10^3/uL (150-450); Red Blood Count 4.91 10^6 /uL (4.18-5.48); Red Cell Distribution Width 15 % (10-15); White Blood Count 16.9 10^3/uL (3.5-10.8)
[2021-01-12 05:43] LABS: INR 1.14 (0.86-1.15)
[2021-01-12 05:49] LABS: Albumin 3.1 g/dL (3.2-5.2); Calcium 8.9 mg/dL (8.6-10.3); EGFR African American 205.4 (>60); EGFR Non-African American 169.8 (>60); Magnesium 1.6 mg/dL (1.9-2.7); Phosphorus 2.7 mg/dL (2.5-5.0); Potassium 4.3 mmol/L (3.5-5.0); Total Bilirubin 0.5 mg/dL (0.2-1.0); Total Protein 6.1 g/dL (6.4-8.9)
[2021-01-12] MEDS ORDERED: Magnesium Sulfate 2 gm BAG 2 GM/50 ML BAG IVPB ONE (07:42)
[2021-01-12 09:51] LABS: ABS Lymphocytes 0.9 10^3/ul (1.0-4.8); ABS Monocytes 1.3 10^3/ul (0-0.8); ABS Neutrophils 14.6 10^3/ul (1.5-7.7); Eosinophil % 0.1 %; Lymphocyte % 5.3 %
[2021-01-12] MEDS ORDERED: Morphine 2 MG/ML SYRINGE IV PRN (13:44)
[2021-01-12] MEDS ORDERED: Lorazepam PYXIS KEY PRN ×2 (13:45→16:05)
[2021-01-12] MEDS: LORazepam 2 mg VIAL 1 ml IV PUSH PRN ×2 (15:41→17:08)
[2021-01-12] MEDS ORDERED: Morphine 10 MG/ML VIAL (1 ml) ONE (15:52)
[2021-01-12] MEDS ORDERED: Morphine PCA ADULT 5 MG/ML 30 ML PCA SCH ×2 (16:00→19:30)
[2021-01-12] MEDS ORDERED: LORazepam 2 mg VIAL 1 ml IV PUSH PRN ×4 (16:05→21:07)
[2021-01-12] MEDS ORDERED: Morphine 10 MG/ML VIAL (1 ml) IV ONE (16:07)
[2021-01-12 22:56] VITALS: BP 111/77
== END 2021-01-13 05:00 | disposition expired | DRG 208 ==
LOC: ED 13:24 → ICU 15:24 → MED 01-12 23:04
PROVIDERS: ADMIT Internal Medicine; ATTEND Internal Medicine